=== PATIENT | female | born 1995 | race Caucasian/White ===

== ENCOUNTER 2018-07-08 10:36 | Emergency (ER) | payer MEDICAID, OTHER ==
[~2018-07-08] VITALS: Ht 149.9 cm; Wt 52.0 kg
[~2018-07-08 10:36] MED LIST: FLOV22
[2018-07-08] MEDS ORDERED: ONDANSETRON HCL 4MG/2ML INJ IV STA (12:23)
[2018-07-08] MEDS ORDERED: SODIUM CHLORIDE 0.9% 1,000 ML IV ONE (12:23)
[2018-07-08] MEDS ORDERED: FAMOTIDINE 20MG/2ML VIAL IV STA (12:23)
[2018-07-08 13:07] LABS: HEMATOCRIT. 45.2 % (36.0-48.0); HEMOGLOBIN. 16.2 g/dL (12.0-16.0); MEAN CORPUSCULAR HEMOGLOBIN 30.8 pg (28.0-32.0); MEAN PLATELET VOLUME 7.5 fl (7.4-10.4); PLATELET 271 x1000/uL (130-400); RED BLOOD CELL COUNT 5.25 mill/uL (4.2-5.4); RED CELL DISTRIBUTION WIDTH 13.4 % (11.6-14.6)
[2018-07-08 13:09] LABS: BASOPHILS % 0.6 % (0.0-2.0); EOSINOPHILS % 1.4 % (0.0-5.0); LYMPHOCYTES % 29.6 % (20.0-50.0); MONOCYTES % 10.2 % (2.0-8.0); NEUTROPHILS % 58.2 % (40.0-76.0)
[2018-07-08 13:14] LABS: INR 1.1; PROTHROMBIN TIME 10.8 sec (9.1-11.1)
[2018-07-08 13:18] LABS: CHLORIDE 103 mEq/L (98-107)
[2018-07-08 13:20] LABS: HCG SCREEN NEGATIVE
[2018-07-08] MEDS ORDERED: DEXTROSE 50% WATER 50ML SYRINGE IV ONE (13:30)
[2018-07-08 13:44] LABS: CLARITY URINE TURBID (CLEAR); COLOR URINE YELLOW (YELLOW); KETONES URINE TRACE (NEGATIVE); LEUKOCYTE ESTERASE URINE NEGATIVE (NEGATIVE); NITRITE URINE NEGATIVE (NEGATIVE); OCCULT BLOOD URINE NEGATIVE (NEGATIVE); PROTEIN URINE NEGATIVE (NEGATIVE); SPECIFIC GRAVITY URINE 1.025 (1.005-1.030)
[2018-07-08 16:06] VITALS: BP 112/78
== END 2018-07-08 16:08 | disposition home or self-care (01) ==
LOC: ER 10:36
DX: R10.13 Epigastric pain (principal); R19.7 Diarrhea, unspecified; R11.2 Nausea with vomiting, unspecified; Z88.0 Allergy status to penicillin; Z79.899 Other long term (current) drug therapy; Z87.42 Personal history of other diseases of the female genital tract
CPT/HCPCS: 36415; 74022; 80053; 81003; 81025; 82962; 83690; 84703; 85025; 85610; 96361; 96374; 96375; 99285; J2405; J3490; J7030